=== PATIENT | female | born 1945 | race Caucasian/White ===

== ENCOUNTER 2018-08-25 07:51 | Day surgery (SDC) | END 2018-08-25 12:35 | disposition home or self-care (01) ==

== ENCOUNTER → 2018-11-01 | Outpatient (CLI) | payer MEDICARE, OTHER ==
[~2018-11-01] MED LIST: ASPIRIN; BLOOD PRESSURE MED; CHOLESTEROL MED; IOHEXOL 100 ML ONE; IOHEXOL 350MG/ML 50 ML BTL ONE; IRON; SEIZURE MEDICATION; SOD CHLORIDE 0.9% 100 ML ONE; [UNRECOGNIZED DRUG - REMARK]
== END | disposition home or self-care (01) ==
LOC: PUL 08:20
PROVIDERS: ATTEND Internal Medicine
DX: R06.00 Dyspnea, unspecified (principal); R06.02 Shortness of breath
CPT/HCPCS: 71275; 94010; 94729; Q9967